=== PATIENT | male | born 1995 | race Caucasian/White ===

== ENCOUNTER 2018-08-09 00:41 | Observation (INO) | payer SELFPAY ==
--- NOTE | 2018-08-09 01:53 | PDOC.FPRHP ---
- History of Present Illness Chief Complaint: Abdominal pain History of Present Illness: 22yo M with pmh of gastroschisis presenting as transfer from [place] [facility] for eval of abdominal pain. Onset was acute and 48hrs ago with exquisite crampy diffuse abdominal pain with no radiation. Related chills, no subjective fevers. Pain has been somewhat exacerbated by eating and relieved by nothing. Nausea and vomiting x2 in last 48 hours, no upper or lower GIB. Pt reports 2 BMs over last 24 hours, one being "on the hard side" with the other being "on the soft side". No recent changes in diet, no sick contacts. Pt in [place] refuses all opiates for pain control 2/2 hx of multi drug abuse. Pt now sober and lives in recovery home. ED Course: zosyn, protonix, zofran, promethazine - History PMHx: gastroschisis PSHx: gastroschisis correction FHx: none Social: denies tobacco, former multi drug (including IV) and ETOH abuser, sober now living in recovery home. PT REFUSES ALL OPIATES - Review of Systems General: denies: fever/chills, fatigue Eyes: denies: eye pain, vision changes ENT: denies: nasal congestion, rhinorrhea Respiratory: denies: cough, congestion Cardiovascular: denies: chest pain, palpitation Gastrointestinal: reports: abdominal pain. denies: nausea, vomiting, GI bleeding Genitourinary: denies: incontinence, dysuria Skin: denies: rashes, lesions Musculoskeletal: denies: pain, tenderness Neurological: denies: numbness, syncope Psychological: denies: anxiety, depression - Vital signs BP: 132/53, Pulse: 90, Resp: 17, Temp: 99.2 (Oral), Pain: 2, O2 sat: 98 on Room Air, Time: 08/09/2018 00:45. - Physical Exam Constitutional: NAD, awake, alert and oriented HEENT: normocephalic and atraumatic, EOMI, grossly normal vision, grossly normal hearing Neck: supple, trachea midline Chest: no-tender to palpation Heart: RRR, normal S1/S2 Lungs: CTAB, no respiratory distress Abdomen: soft, bowel sounds present, other -Abdomen: midline scar from gastroschisis correction, notably timpanic to percussion in epigastric region, mild TTP in LLQ, no guarding Musculoskeletal: normal structure, normal tone Neurological: no focal deficit, normal sensation Skin: no rash/lesions, good turgor Heme/Lymphatic: no unusual bruising or bleeding, no purpura Psychiatric: normal mood and affect, good judgment and insight FMR H&P: A/P - Problem List (1) Hypovolemia Current Visit: Yes Status: Acute Code(s): E86.1 - HYPOVOLEMIA (2) Gastroenteritis Current Visit: Yes Status: Acute Code(s): K52.9 - NONINFECTIVE GASTROENTERITIS AND COLITIS, UNSPECIFIED (3) History of drug abuse in remission Current Visit: Yes Status: Acute Code(s): Z87.898 - PERSONAL HISTORY OF OTHER SPECIFIED CONDITIONS - Plan Hypovolemia A- 2/2 decreased PO intake with abdominal pain, pt is status post 1 L and it is uncertain how he will maintain PO intake P- LR 100ml /hr - PO intake as tolerated - zofran for nausea Gastroenteritis A- pt is status post zosyn in outside ED, considering abnormal anatomy and severity of abdominal exam in [place] will continue ABX P- ciprofloxacin - protonix - zofran and tums prn - advance diet as tolerated - advise outpt GI consult Hx of multi drug and alcohol abuse - Pt in recovery now and refuses all opiate pain meds. aware CODE: FULL FMR H&P: Upper Level - Pertinent history Cheikh Nascimento is a 22 year old male with past history of drug abuse who was transferred from prior ED due to severe abdominal pain from colitis. Pt initially presented to outside ER with 48 hours of worsening severe abdominal pain and poor PO intake. Associated with nausea and vomiting. No diarrhea. He was transferred so that he may receive a surgical consult due to his concerning abdominal exam. He received fluids and antiemetics prior to transfer - Pertinent findings Exam: General: alert and oriented x 3; in no distress. No pain currently. Heart: regular rate and rhythm, no murmurs, rubs, or gallops. Lungs: clear to auscultation bilaterally; no crackles, wheezes, or rhonchi Abdomen: normoactive bowel sounds; midline scar; soft; mild tenderness in hypogastrium and LLQ; no rebound or involuntary guarding. CT abdomen: Markedly abnormal small bowel with multifocal areas of bowel dilatation and wall thickening suggestive of inflammation. Apperance is not that of obstruction. Cause is not evident. Small amount of free fluid within lower abdomen and pelvis. - Plan Date/Time: 08/09/18 0153 I, Daniela Curry, have evaluated this patient and agree with findings/plan as outlined by financial analyst intern resident. Pertinent changes/additions are listed here. Moderate volume depletion - due to poor PO intake. - s/p 1 L in ED - will continue maintenance IV fluids. Acute enteritis - likely related to infectious cause (viral vs. bacterial). - inflammatory cause possible. Further investigation not likely needed, given that this is not chronic in nature. - clear liquid diet. advance as tolerated. - Pt is in recovery and would like to avoid opiates for pain control. Will try Tylenol prn. - will continue PO antibiotics given severe initial presentation. - possible discharge later today if pt is able to tolerate PO intake. Dispo:stable. LOS likely < 2 midnights. DVT prophylaxis: SCDs. Addendum - Attending - Attending Attestation Date/Time: 08/09/18 0902 I personally evaluated the patient and discussed the management with Dr. Jo I agree with the History, Examination, Assessment and Plan documented above with any addition or exceptions noted below. 22 yo male with hx gastroschisis living in inpatient recovery home in [facility] last 7 months for alcoholism recovery. Patient with hx IV drug use last HIV etc 2 years ago in [place]. Patient with 48 hours of abdominal pain he discribes as across abdomen . Patient denied Fever chills had BM yesterday and was able eat eggs however pain increased intensity and he presented to [place] ER where he underwent CT without concern for obstruction. Patient did receive AB and was transferred here for further evaluation. Patient after hydration with improvement non surgical abdomen at present will rec advance diet as tolerated and observation for dismissqal
[2018-08-09 03:03] VITALS: BMI 24.3
[2018-08-09] MEDS ORDERED: Calcium Carbonate 500 MG ChewTAB PO PRN (03:15)
[2018-08-09] MEDS ORDERED: Ondansetron ODT 4 MG TAB PO PRN (03:15)
[2018-08-09] MEDS ORDERED: Ondansetron PF 4 MG/2 ML Vial IVP PRN (03:15)
[2018-08-09] MEDS ORDERED: Acetaminophen 650 MG Suppository PR PRN (03:15)
[2018-08-09] MEDS ORDERED: Acetaminophen 325 MG TAB PO PRN (03:15)
[2018-08-09] MEDS ORDERED: Ibuprofen 600 MG TAB PO PRN (03:15)
[2018-08-09] MEDS: Lactated Ringer's 1,000 ML IV SCH ×3 (03:30→20:36)
[2018-08-09 12:56] LABS: Syphilis Antibody Nonreactive (Nonreactive); Syphilis Antibody Index 0.03 S/CO (<1.00 Non-Reactive)
[2018-08-09 12:59] LABS: HBCM Index 0.06 S/CO (0-0.79); HBSAg Index 0.34 S/CO (0-0.99); HIV (1/2) Antibody/Antigen Non-Reactive (NonReactive); HIV 1/2 INDEX 0.16 S/CO (<1.00); Hep A IgM AB Non-Reactive (NonReactive); Hep A IgM S/CO 0.15 S/CO (0-0.79); Hep B Surf Ag Non-Reactive S/CO (NonReactive); Hep C IgG Ab Non-Reactive (NonReactive); Hep C Index 0.11 S/CO (0-0.79); Hepatitis B Core IgM Abs Non-Reactive (NonReactive)
[2018-08-10 05:53] LABS: #Eosinphils 0.4 thou/uL (0.0-0.7); #Lymphocytes 1.9 thou/uL (1.20-3.40); #Monocytes 0.5 thou/uL (0.11-0.59); #Neutrophils 1.5 thou/uL (1.40-6.50); %Basophils 0.6 % (0.0-1.0); %Eosinophils 8.7 % (0.0-10.0); %Lymphocytes 43.4 % (21.0-51.0); %Monocytes 11.6 % (0.0-10.0); %Neutrophils 35.6 % (42.0-75.0); Hemoglobin 12.9 g/dL (14.0-18.0); Mean Corpuscular HGB CONC 33.1 g/dL (32.0-36.0); Mean Corpuscular Hemoglobin 29.8 pg (27.0-31.0); Mean Corpuscular Volume 89.9 fL (78.0-98.0); Mean Platelet Volume 6.6 fL (7.4-10.4); Platelet Count 175 thou/uL (130-400); RBC Distribution Width 12.2 % (11.5-14.5); Red Blood Cell (RBC) Count 4.33 mill/uL (4.70-6.10); White Blood Cell (WBC) Count 4.3 thou/uL (4.8-10.8)
[2018-08-10] MEDS: Lactated Ringer's 1,000 ML IV SCH (06:15)
--- NOTE | 2018-08-10 08:21 | PDOC.FM ---
- Subjective Subjective: Pt states he has done well overnight. He states he had a normal dinner with no negative effects. He denies nausea, vomiting, or abdominal pain. He states that he had some loose stool but no diarrhea. - Objective MAR Reviewed: Yes Vital Signs & Weight: Vital Signs (12 hours) Temp Pulse Resp BP Pulse Ox 08/10/18 08:15 98.2 F 60 14 117/79 97 08/10/18 04:00 97.6 F 55 L 20 122/67 99 08/10/18 00:00 97.9 F 60 20 109/65 98 Weight Admit Weight 74.843 kg Weight 74.843 kg I&O: 08/09/18 08/10/18 08/11/18 06:59 06:59 06:59 Intake Total 1642.5 1000 Output Total 400 Balance 1242.5 1000 Result Diagrams: 08/10/18 05:31 Phys Exam - Physical Examination Constitutional: NAD HEENT: moist MMs Neck: supple, full ROM Respiratory: no wheezing, no rales, clear to auscultation bilateral Cardiovascular: RRR, no significant murmur, no rub Gastrointestinal: soft, no distention, positive bowel sounds Evident scars on abdomen from previous surgeries, non-tender to palpation Musculoskeletal: no edema, pulses present Neurological: normal sensation, moves all 4 limbs Psychiatric: normal affect, A&O x 3 Skin: cap refill <2 seconds Dx/Plan (1) Gastroenteritis Code(s): K52.9 - NONINFECTIVE GASTROENTERITIS AND COLITIS, UNSPECIFIED Status : Acute (2) History of drug abuse in remission Code(s): Z87.898 - PERSONAL HISTORY OF OTHER SPECIFIED CONDITIONS Status: Acute (3) Hypovolemia Code(s): E86.1 - HYPOVOLEMIA Status: Acute - Plan Plan: This is a 22 yo male with a pmh of multidrug abuse in remission Hypovolemia 2/2 gastroenteritis -Pt is tolerating regular diet, off IVFs -pt has not required zofran overnight -Pain is resolved, pt will likely be discharged today Hx of multi drug and alcohol abuse -Appears negative -HIV, hepatitis panel, and RPR negative Addendum - Attending - Attending Attestation Date/Time: 08/10/181958 I personally evaluated the patient and discussed the management with Dr. Shin I agree with the History, Examination, Assessment and Plan documented above with any addition or exceptions noted below. Patient abdomen benign he is tolerating diet stable dismissal he would benefit to have outpatient follow up to establish PCP and referral GI prn. Patient with history of intermittent abdominal pain consider Intermittent PSBO.
[2018-08-10] MEDS ORDERED: Enoxaparin Sodium 40 MG/0.4 ML SYRINGE SC SCH (09:00)
[2018-08-10 09:48] VITALS: TEMP 98.1
[2018-08-10 11:35] VITALS: BP 116/60
--- NOTE | 2018-08-13 00:59 | DIS ---
DATE OF ADMISSION: 08/09/2018 DATE OF DISCHARGE: 08/10/2018 DISCHARGE ATTENDING: J Carlos Gamboa MD RESIDENT: Jason Shin DO CONSULTS: None. PROCEDURES: Acute abdomen series showing ileus versus gastroenteritis, normal chest and abdomen and pelvis with contrast showing markedly abnormal small bowel with multifocal areas of bowel dilation, wall thickening, suggestive of inflammation. Appearance is not that of obstruction. Cause not evident. Small amount of free fluid is also apparent. PRIMARY DIAGNOSES: Moderate volume depletion, acute viral gastroenteritis. SECONDARY DIAGNOSIS: History of drug and alcohol abuse. DISCHARGE MEDICATIONS: None. DISCONTINUED MEDICATIONS: None. BRIEF HISTORY OF PRESENT ILLNESS/HOSPITAL COURSE: This is a 22-year-old male with past medical history of gastroschisis, who presented as a transfer from [facility] for evaluation of what was believed to be an acute abdomen. Outside provider was concerned over his exquisite tenderness, diffuse abdomen, subjective chills and no fever. The patient reports pain was exacerbated by eating, not improved by anything. The patient was admitted and provided IV fluids as well as IV antibiotics for fear of acute abdomen. Status post 1 L of volume resuscitation. The patient was already beginning to feel better. The patient was watched overnight and continued to improve. The patient remained afebrile during his stay and vital signs were stable. DISPOSITION: Stable. DISCHARGE INSTRUCTIONS: 1. Location: Home. 2. Diet: Regular. 3. Activity: As tolerated. 4. Follow up with PCP. Job ID: [id number]
== END 2018-08-10 14:02 | disposition home or self-care (01) ==
LOC: ERS 00:41 → SURG B 01:45
PROVIDERS: ADMIT Student in an Organized Health Care Education/Training Program; ATTEND Student in an Organized Health Care Education/Training Program
DX: E86.9 Volume depletion, unspecified (principal); A08.39 Other viral enteritis; F10.11 Alcohol abuse, in remission; F19.11 Other psychoactive substance abuse, in remission
CPT/HCPCS: 36415; 80074; 85025; 86780; 87389; 96360; 96361; 99284; G0378; J0744; J1650